=== PATIENT | male | born 1955 | race Native Hawaiian/Other Pacific Islander ===

== ENCOUNTER → 2016-09-01 | Outpatient (CLI) | payer BC | LOC: COL.PUL 07:31 | DX: J44.9 Chronic obstructive pulmonary disease, unspecified (principal); Z87.891 Personal history of nicotine dependence ==

== ENCOUNTER 2017-10-21 06:02 | Day surgery (SDC) | payer BC ==
[2017-10-21] VITALS (14 sets, daily range): BP systolic 140–170; BP diastolic 87–101; PULSE 50–69; TEMP 97.8
[~2017-10-21] VITALS: Ht 170.2 cm; Wt 136.7 kg
[2017-10-21] MEDS ORDERED: TOPROL XL100 MG PO (06:13)
[2017-10-21] MEDS ORDERED: LIPITOR 40MG TA40 MG PO (06:14)
[2017-10-21] MEDS ORDERED: IMDUR 60MG60 MG/TAB PO (06:14)
[2017-10-21] MEDS ORDERED: PLAVIX 75MG TAB75 MG PO (06:14)
[2017-10-21] MEDS ORDERED: COZAAR100 MG PO (06:15)
[2017-10-21] MEDS ORDERED: BRINTELLIX20 (06:15)
[2017-10-21] MEDS ORDERED: ANORO IH (06:16)
[2017-10-21 06:40] LABS: HEMATOCRIT 41.6 % (42.0-52.0); HEMOGLOBIN 14.6 g/dl (13.5-18.0); MEAN CELL VOLUME 92 fl (80.0-100.0); MEAN CORPUSCULAR HEMOGLOBIN 32 pg (27.0-31.0); MEAN CORPUSCULAR HGB CONC 35 g/dl (33.0-37.0); MEAN PLATELET VOLUME 10.4 fl (7.4-10.4); PLATELET COUNT 320 K/mm3 (130-400); RED BLOOD COUNT 4.53 M/mm3 (4.20-5.60); REDCELL DISTRIBUTION WIDTH-CV 13.8 % (11.5-14.5)
[2017-10-21 06:47] LABS: PROTHROMBIN TIME 11.4 SECONDS (9.7-12.8)
[2017-10-21 06:55] LABS: ARTERIAL BLD GAS TCO2 CT 27.2; ARTERIAL BLOOD GAS BASE EXCESS 1.4 (-2-2); ARTERIAL BLOOD GAS HCO3 25.9 meq/L (22-26); ARTERIAL BLOOD GAS PCO2 40.7 mmHg (35-45); ARTERIAL BLOOD GAS PO2 75.4 mmHg (80-100); ARTERIAL BLOOD GAS pH 7.42 (7.35-7.45)
[2017-10-21 07:11] LABS: CALCIUM 8.7 mg/dL (8.4-10.2); CREATININE, serum 0.89 mg/dL (0.66-1.25); POTASSIUM 4.5 mmol/L (3.4-5.0)
== END 2017-10-21 13:45 | disposition home or self-care (01) ==
LOC: COL.CAR 06:02
PROVIDERS: Internal Medicine Interventional Cardiology
DX: I25.119 Atherosclerotic heart disease of native coronary artery with unspecified angina pectoris (principal); R94.39 Abnormal result of other cardiovascular function study; I27.20 Pulmonary hypertension, unspecified; G47.33 Obstructive sleep apnea (adult) (pediatric); M54.2 Cervicalgia; I10 Essential (primary) hypertension; E78.5 Hyperlipidemia, unspecified; Z88.6 Allergy status to analgesic agent
CPT/HCPCS: J1644; J2250; J3010; Q9967

== ENCOUNTER 2017-11-02 19:18 | Emergency (ER) | payer BC ==
[~2017-11-02] VITALS: Ht 170.2 cm; Wt 131.8 kg
[~2017-11-02 19:18] MED LIST: ANORO IH; BRINTELLIX20; COZAAR100 MG PO; IMDUR 60MG60 MG/TAB PO; LIPITOR 40MG TA40 MG PO; PLAVIX 75MG TAB75 MG PO; TOPROL XL100 MG PO
[2017-11-02 19:24] VITALS: TEMP 98
[2017-11-02 20:02] LABS: BASO # 0.1 (0.0-0.2); BASO % 0.9 % (0.0-2.0); EOS # 0.3 (0.0-0.7); GRAN # 3.5 (1.4-6.5); GRAN % 49.9 % (42.2-75.2); HEMATOCRIT 46.1 % (42.0-52.0); HEMOGLOBIN 15.7 g/dl (13.5-18.0); LYMPH # 2.4 (1.2-3.4); LYMPH % 33.7 % (20.0-51.0); MEAN CELL VOLUME 94 fl (80.0-100.0); MEAN CORPUSCULAR HEMOGLOBIN 32 pg (27.0-31.0); MEAN CORPUSCULAR HGB CONC 34 g/dl (33.0-37.0); MONO # 0.8 (0.1-0.6); MONO % 11.4 % (1.7-9.3); PLATELET COUNT 269 K/mm3 (130-400); RED BLOOD COUNT 4.91 M/mm3 (4.20-5.60); REDCELL DISTRIBUTION WIDTH-CV 13.3 % (11.5-14.5)
[2017-11-02 20:12] LABS: ALANINE AMINOTRANSFERASE 44 U/L (21-72); ALBUMIN 4.3 gm/dL (3.5-5.0); ALKALINE PHOSPHATASE 86 U/L (50-136); ANION GAP 12 mmol/L (7-16); AST,SGOT 46 U/L (15-37); BILIRUBIN,TOTAL 0.5 mg/dL (0.0-1.0); BLOOD UREA NITROGEN 33 mg/dL (9-20); CALCIUM 9.4 mg/dL (8.4-10.2); CARBON DIOXIDE 22 mmol/L (22-30); CHLORIDE 106 mmol/L (98-107); CREATININE, serum 1.27 mg/dL (0.66-1.25); GLUCOSE 93 mg/dL (74-106); POTASSIUM 4.2 mmol/L (3.4-5.0); SODIUM 140 mmol/L (137-145); TOTAL PROTEIN 8.1 gm/dL (6.4-8.2)
[2017-11-02] MEDS ORDERED: RANEXA 500MG T500 MG PO (20:24)
[2017-11-02 20:26] LABS: TROPONIN-I < 0.012 ng/mL (0.000-0.034)
[2017-11-02] MEDS ORDERED: ANTIVERT 25MG25 MG PO (20:49)
[2017-11-02] MEDS ORDERED: ZOFRAN 4MG T4 MG/TAB PO (20:49)
[2017-11-02 21:05] VITALS: BP 127/94; PULSE 89
== END 2017-11-02 21:05 | disposition home or self-care (01) ==
LOC: COL.ER 19:18
PROVIDERS: Emergency Medicine
DX: R07.89 Other chest pain (principal); R42 Dizziness and giddiness; R11.0 Nausea; I10 Essential (primary) hypertension; J44.9 Chronic obstructive pulmonary disease, unspecified; I50.9 Heart failure, unspecified; E66.9 Obesity, unspecified; Z87.891 Personal history of nicotine dependence; Z98.890 Other specified postprocedural states; Z79.02 Long term (current) use of antithrombotics/antiplatelets
CPT/HCPCS: J2405

== ENCOUNTER 2018-08-01 08:45 | Outpatient (RCR) | payer OTHER ==
[~2018-08-01 08:45] MED LIST changes: +ANTIVERT 25MG25 MG PO; +RANEXA 500MG T500 MG PO; +ZOFRAN 4MG T4 MG/TAB PO
== END 2018-08-09 16:20 | disposition home or self-care (01) ==
LOC: WSPT 08:45
DX: M54.5 Low back pain (principal); M25.562 Pain in left knee; M25.561 Pain in right knee

== ENCOUNTER → 2018-09-12 | Outpatient (CLI) | payer OTHER | LOC: COL.PUL 07:35 | DX: Z02.71 Encounter for disability determination (principal) ==

== ENCOUNTER 2018-11-25 22:43 | Inpatient (IN) | payer OTHER ==
[~2018-11-25] VITALS: Ht 170.2 cm; Wt 130.3 kg
[2018-11-25 23:16] LABS: BASO % 0.4 % (0.0-2.0); EOS # 0.2 (0.0-0.7); EOS % 2.8 % (0-4.0); GRAN # 4.4 (1.4-6.5); HEMATOCRIT 43.2 % (42.0-52.0); HEMOGLOBIN 14.9 g/dl (13.5-18.0); LYMPH # 1.6 (1.2-3.4); LYMPH % 23.1 % (20.0-51.0); MEAN CELL VOLUME 94 fl (80.0-100.0); MEAN CORPUSCULAR HEMOGLOBIN 33 pg (27.0-31.0); MEAN CORPUSCULAR HGB CONC 35 g/dl (33.0-37.0); MONO # 0.6 (0.1-0.6); MONO % 9.4 % (1.7-9.3); PLATELET COUNT 220 K/mm3 (130-400); RED BLOOD COUNT 4.59 M/mm3 (4.20-5.60); REDCELL DISTRIBUTION WIDTH-CV 13.3 % (11.5-14.5)
[2018-11-25 23:24] LABS: ALBUMIN 4.1 gm/dL (3.5-5.0); BILIRUBIN,TOTAL 0.5 mg/dL (0.0-1.0); CALCIUM 9.3 mg/dL (8.4-10.2); CREATININE, serum 1.47 (0.66-1.25); POTASSIUM 4.3 mmol/L (3.4-5.0); TOTAL PROTEIN 7.6 gm/dL (6.4-8.2)
[2018-11-26] VITALS (7 sets, daily range): BP systolic 90–122; BP diastolic 53–69; PULSE 72–87; TEMP 97.5–99.1
[2018-11-26] MEDS ORDERED: PROAIR HFA0.09 MG/AC IH (02:24)
--- NOTE | 2018-11-26 02:35 | NUR ---
PT ADMITTED TO 343 FROM E.D. WITH Dx OF PERFORATED DIVERTICULUM/ABDOMINAL PAIN. PT DID NOT NEED/REQUEST PAIN MEDICATION WHEN ARRIVING ON FLOOR. SEE 5 PAGE ADMISSION ASSESSMENT.
[2018-11-26 02:50] LABS: COLLECTION METHOD CLEAN CATCH
[2018-11-26 02:57] LABS: MUCOUS Present /lpf; PH 5 (5-8); SQUAMOUS EPITHELIAL None Seen /hpf; URINE APPEARANCE Cloudy; URINE BACTERIA Rare /hpf; URINE BILIRUBIN Negative (NEGATIVE); URINE BLOOD 3+ (NEGATIVE); URINE COLOR Yellow; URINE GLUCOSE Negative (NEGATIVE); URINE KETONE Negative (NEGATIVE); URINE LEUKOCYTE ESTERASE Negative (NEGATIVE); URINE NITRATE Negative (NEGATIVE); URINE PROTEIN(semi-quant) Negative (NEGATIVE); URINE RBC >50 /hpf; URINE UROBILINOGEN Negative (NEGATIVE)
--- NOTE | 2018-11-26 06:24 | NUR ---
PT HAS NOT REQUIRED ANYTHING MORE FOR PAIN. HE DID c/o DYSPNEA. PT SAT UP ON EDGE OF BED AND FELT BETTER.
[2018-11-26 12:50] LABS: TROPONIN-I < 0.012 ng/mL (0.000-0.035)
--- NOTE | 2018-11-26 18:00 | NUR ---
Alert. Medicated with Dilaudid for c/o lower left abdominal pain with relief. Dr. Dill and hospitalist saw patient. IV antibiotics given. Used BIOLOGICAL SCIENCES PROFESSOR Dilaudid sparingly. Slept in recliner chair with O2 on. Took ice chips without nausea. IV fluids infusing. Family in room.
[2018-11-27] VITALS (10 sets, daily range): BP systolic 108–127; BP diastolic 42–83; PULSE 71–87; TEMP 97.5–99.4
[2018-11-27 06:28] LABS: BASO % 0.1 % (0.0-2.0); GRAN % 88.7 % (42.2-75.2); HEMATOCRIT 38.2 % (42.0-52.0); LYMPH # 0.8 (1.2-3.4); LYMPH % 5.4 % (20.0-51.0); MEAN CELL VOLUME 97 fl (80.0-100.0); MEAN CORPUSCULAR HEMOGLOBIN 33 pg (27.0-31.0); MEAN CORPUSCULAR HGB CONC 34 g/dl (33.0-37.0); MEAN PLATELET VOLUME 9.4 fl (7.4-10.4); MONO # 0.8 (0.1-0.6); MONO % 5.2 % (1.7-9.3); PLATELET COUNT 186 K/mm3 (130-400); RED BLOOD COUNT 3.93 M/mm3 (4.20-5.60); REDCELL DISTRIBUTION WIDTH-CV 14.3 % (11.5-14.5)
[2018-11-27 06:32] LABS: HEMOGLOBIN 12.8 g/dl (13.5-18.0)
[2018-11-27 06:43] LABS: CALCIUM 8.7 mg/dL (8.4-10.2); CREATININE, serum 1.17 (0.66-1.25); POTASSIUM 3.7 mmol/L (3.4-5.0)
--- NOTE | 2018-11-27 08:30 | NUR ---
Patient sitting up in recliner. Alert and oriented x 3. Shift assessment complete. PRESETTER OPERATOR infusing per orders, educated patient on ETCO2 monitor and leaving monitor in place. Denies further needs at this time. Will continue to monitor.
--- NOTE | 2018-11-27 14:56 | NUR ---
Initial visit attempt; Patient resting, Medical Front Desk Specialist spoke with family who appeared glad Medical Front Desk Specialist let them know of the availability of spiritual care at [facility].
--- NOTE | 2018-11-27 17:58 | NUR ---
Patient has done well throughout the day. CRAP SHOOTER continues to infuse per orders. Denies further needs at this time. Will report off to shift mgr.
[2018-11-28] VITALS (11 sets, daily range): BP systolic 122–154; BP diastolic 44–82; PULSE 72–91; TEMP 97.8–98.8
--- NOTE | 2018-11-28 06:08 | NUR ---
Patient rested well throughout the night. States pain is much better controlled than yesterday with the continuous dose from VAULT CUSTODIAN. States pain is at a 5 when he is resting and around an 7 when he is up moving around. Patient states he is happy and his pain is controlled at this time. Patient ambulates independently to the restroom. States he is having loose stools. Will report off to day shift nurse.
[2018-11-28] MEDS ORDERED: 00186-0370-20 IH (08:08)
--- NOTE | 2018-11-28 08:54 | NUR ---
SAMAN met with the patient to discuss a discharge plan. The patient lives in [place] with his Katiuska. The patient has a cane and a CPAP and receives his supplies from the [facility] and patient receives medications from the [facility] via mail and [facility] with no difficulites. The patient does not have advanced directives in the EMR but was interested in a DPOA-HC form. SAMAN provided the form. The patient plans to return home upon discharge with Katiuska providing transportation. There are no additional needs at this time.
[2018-11-28 09:15] LABS: BASO % 0.1 % (0.0-2.0); EOS # 0.1 (0.0-0.7); EOS % 0.5 % (0-4.0); GRAN # 11.7 (1.4-6.5); GRAN % 86.5 % (42.2-75.2); HEMATOCRIT 38.5 % (42.0-52.0); HEMOGLOBIN 12.7 g/dl (13.5-18.0); LYMPH # 0.8 (1.2-3.4); LYMPH % 6.2 % (20.0-51.0); MEAN CELL VOLUME 97 fl (80.0-100.0); MEAN CORPUSCULAR HEMOGLOBIN 32 pg (27.0-31.0); MEAN CORPUSCULAR HGB CONC 33 g/dl (33.0-37.0); MEAN PLATELET VOLUME 9.1 fl (7.4-10.4); MONO # 0.8 (0.1-0.6); PLATELET COUNT 201 K/mm3 (130-400); RED BLOOD COUNT 3.99 M/mm3 (4.20-5.60)
[2018-11-28 09:27] LABS: CALCIUM 8.6 mg/dL (8.4-10.2); CREATININE, serum 0.87 (0.66-1.25); POTASSIUM 3.7 mmol/L (3.4-5.0)
--- NOTE | 2018-11-28 09:41 | NUR ---
Patient in bed resting. Alert and oriented x3. Shift assessment complete. Patient states pain is better controlled with new medication regimen. COGNOS BI ADMINISTRATOR and fluids infusing to right AC per orders. Denies further needs at this time.
--- NOTE | 2018-11-28 18:17 | NUR ---
Patient has done well throughout the day. States pain is well controlled with current medication regimen. Denies further needs at this time. Will report off to manufacturing supervisor 2nd shift.
--- NOTE | 2018-11-28 20:00 | NUR ---
Report received. Assumed care for cnc machinist 2nd shift. Assessment complete. VS stable. States dilaudid MACHINE COIL ASSEMBLER controlling pain adequately. Tolerating clear liquids-denies nausea. Passing gas-states had a loose BM earlier today. Plan of care discussed for this shift to include pain control, HS meds and diet. Denies questions or concerns. Call light in reach/bed in low position/wheels locked will monitor.
[2018-11-29] VITALS (10 sets, daily range): BP systolic 118–141; BP diastolic 63–97; PULSE 71–93; TEMP 97.8–98.7
--- NOTE | 2018-11-29 04:00 | NUR ---
Rested well this shift. Pain controlled with dilaudid ARC CUTTER PLASMA ARC. Denies nausea/shortness of breath. IV to Right AC infusing without difficulty. Has tolerated clear liquids. Denies needs. Call light in reach. Bed in low position wheels locked. Will monitor.
[2018-11-29 07:15] LABS: BASO % 0.3 % (0.0-2.0); EOS # 0.4 (0.0-0.7); EOS % 3.1 % (0-4.0); GRAN # 9.1 (1.4-6.5); HEMATOCRIT 39.5 % (42.0-52.0); HEMOGLOBIN 12.9 g/dl (13.5-18.0); LYMPH # 1.1 (1.2-3.4); LYMPH % 9.6 % (20.0-51.0); MEAN CELL VOLUME 97 fl (80.0-100.0); MEAN CORPUSCULAR HEMOGLOBIN 32 pg (27.0-31.0); MEAN CORPUSCULAR HGB CONC 33 g/dl (33.0-37.0); MEAN PLATELET VOLUME 9.2 fl (7.4-10.4); MONO # 1.2 (0.1-0.6); MONO % 10.2 % (1.7-9.3); PLATELET COUNT 211 K/mm3 (130-400); RED BLOOD COUNT 4.08 M/mm3 (4.20-5.60); REDCELL DISTRIBUTION WIDTH-CV 13.6 % (11.5-14.5)
[2018-11-29 07:25] LABS: CALCIUM 8.3 mg/dL (8.4-10.2); CREATININE, serum 0.88 (0.66-1.25); POTASSIUM 3.4 mmol/L (3.4-5.0)
--- NOTE | 2018-11-29 08:00 | NUR ---
UPON ENTRY TO THE ROOM THE PATIENT IS SITTING UP IN THE CHAIR WITH HIS AT THE BEDSIDE. PATIENT IS A&OX4. VSS. TELE IN PLACE. BOWEL SOUNDS ACTIVE ALL FOUR QUADRANTS. PATIENT TOLERATING CLEAR LIQUIDS WITHOUT ANY COMPLAINTS OF N/V. PATIENT PASSING FLATUS. POSITIVE PEDAL PULSES EQUAL BILATERALLY. NON-PITTING EDEMA TO BLE. IV FLUIDS AND JOURNEYMAN MECHANIC INFUSING TO RIGHT AC IV VIA PUMP. CALL LIGHT AND JOURNEYMAN MECHANIC BUTTON WITHIN REACH. PATIENT DENIES ANY OTHER NEEDS AT THIS TIME.
--- NOTE | 2018-11-29 09:25 | NUR ---
clay processing factory worker attended clinical rounds and then met with patient and spouse regarding discharge planning. Patient states he is feeling better and has been independent with transfers and ambulation. Patient states his primary care provider [facility] at [facility] and that he receives his medications through the [facility] and [facility]. Patient and spouse deny unmet needs upon discharge.
--- NOTE | 2018-11-29 10:15 | NUR ---
PATIENTS AUTOMATION TEST ENGINEER BASAL RATE STOPPED PER DR. YAO'S ORDERS.
--- NOTE | 2018-11-29 19:12 | NUR ---
REPORT GIVEN TO DELBERT POOL.
--- NOTE | 2018-11-29 20:00 | NUR ---
Report received. Assumed care for night filler. Assessment complete. VS stable. States CHANGE MANAGEMENT FACILITATOR is controlling pain-rating pain 2/10 to abdomen-intermittent. Denies nausea and shortness of breath. Tolerating diet. Voiding without difficulty/passing gas. Refusing HS meds stating he received them on day shift. States his times are "off" and he is confused on why he is getting medications twice a day. We did discuss previous HS medications as well as days shift medications-HS meds not given on day shift-but still refusing to take anything tonight. Denies any needs at this time. Call light in reach. Bed in low postion. Wheels locked. WIll monitor.
[2018-11-30] VITALS (8 sets, daily range): BP systolic 124–149; BP diastolic 75–89; PULSE 73–79; TEMP 97.4–99.3
[2018-11-30 06:39] LABS: BASO % 0.3 % (0.0-2.0); EOS # 0.5 (0.0-0.7); EOS % 4.5 % (0-4.0); GRAN # 7.6 (1.4-6.5); GRAN % 75.3 % (42.2-75.2); HEMATOCRIT 38.9 % (42.0-52.0); HEMOGLOBIN 13.2 g/dl (13.5-18.0); LYMPH # 0.9 (1.2-3.4); LYMPH % 8.5 % (20.0-51.0); MEAN CELL VOLUME 94 fl (80.0-100.0); MEAN CORPUSCULAR HEMOGLOBIN 32 pg (27.0-31.0); MEAN CORPUSCULAR HGB CONC 34 g/dl (33.0-37.0); MEAN PLATELET VOLUME 9.2 fl (7.4-10.4); MONO # 1.1 (0.1-0.6); MONO % 10.9 % (1.7-9.3); PLATELET COUNT 214 K/mm3 (130-400); RED BLOOD COUNT 4.14 M/mm3 (4.20-5.60); REDCELL DISTRIBUTION WIDTH-CV 13.1 % (11.5-14.5)
[2018-11-30 06:54] LABS: CALCIUM 8.5 mg/dL (8.4-10.2); CREATININE, serum 0.7 (0.66-1.25); POTASSIUM 3.3 mmol/L (3.4-5.0)
--- NOTE | 2018-11-30 07:46 | NUR ---
PT SITTING IN RECLINER AWAKE. PT COMPLAINS OF PAIN 08/14. CALL LIGHT AND PHONE WITHIN REACH.
--- NOTE | 2018-11-30 08:00 | NUR ---
Patient sitting up in recliner. Alert and oriented x3. Shift assessment complete. WELDER APPRENTICE GAS and antibiotic infusing per orders to right AC. States pain is tolerable at the moment. Tolerating increase in diet without difficulty. Denies further needs at this time.
--- NOTE | 2018-11-30 13:15 | NUR ---
Patient in chair resting at this time. Patient complains of pain continues to use TETRYL WRINGER OPERATOR. Patient has no other complaints at this time. Call light within reach. Report given to primary RN Gladis
--- NOTE | 2018-11-30 14:20 | NUR ---
Reported on to DELBERT Griffith.
--- NOTE | 2018-11-30 15:20 | NUR ---
Assessment completed. Antibiotic and NS infusing per orders into R AC. Pt. reported 8/10 pain. Educated on use of SUPERINTENDENT OF GENERATION and IS. Pt. reported increased diarrhea and pinching on bilateral sides of calves. Reported to primary nurse. at bedside. Pt. resting in recliner with call light within reach. No complains at this time.
--- NOTE | 2018-11-30 18:15 | NUR ---
Reported of to DELBERT Griffith.
--- NOTE | 2018-11-30 19:17 | NUR ---
Patient has done well throughout the day. CONTINUITY DIRECTOR discontinued this afternoon. Educated on oral pain medications and antibiotics. Tolerating full liquid diet. Denies further needs at this time. Reported off to night manager.
[2018-12-01 04:00] VITALS: BP 157/95; PULSE 84; TEMP 98.1
--- NOTE | 2018-12-01 05:41 | NUR ---
Patient given 1 tab norco for pain. Noted to be effective d/t patient sleeping. Patient slept well throughout the night with no complaints of pain. At about 0400, patient called for more pain medication. Stated it was 12/14. One tab given. Noted to be effective as patient is sleeping again. Will continue to monitor.
[2018-12-01 06:19] LABS: BASO % 0.4 % (0.0-2.0); EOS # 0.6 (0.0-0.7); EOS % 5.7 % (0-4.0); GRAN # 7.8 (1.4-6.5); GRAN % 72.8 % (42.2-75.2); HEMATOCRIT 39.8 % (42.0-52.0); HEMOGLOBIN 13.7 g/dl (13.5-18.0); LYMPH # 1.1 (1.2-3.4); MEAN CELL VOLUME 93 fl (80.0-100.0); MEAN CORPUSCULAR HEMOGLOBIN 32 pg (27.0-31.0); MEAN CORPUSCULAR HGB CONC 34 g/dl (33.0-37.0); MEAN PLATELET VOLUME 9.1 fl (7.4-10.4); MONO # 1.1 (0.1-0.6); MONO % 10.3 % (1.7-9.3); PLATELET COUNT 246 K/mm3 (130-400); RED BLOOD COUNT 4.29 M/mm3 (4.20-5.60); REDCELL DISTRIBUTION WIDTH-CV 13.2 % (11.5-14.5)
[2018-12-01 06:33] LABS: CALCIUM 8.5 mg/dL (8.4-10.2); CREATININE, serum 0.76 (0.66-1.25); POTASSIUM 3.1 mmol/L (3.4-5.0)
[2018-12-01 06:49] LABS: MAGNESIUM 1.8 mg/dL (1.6-2.3)
[2018-12-01 08:00] VITALS: BP 144/92; PULSE 94; TEMP 97.6
--- NOTE | 2018-12-01 08:00 | NUR ---
Patient sitting up in recliner. Alert and oriented x 3. Spouse at bedside. States cramping pain to abdomen 08/14. Educated patient on pain medications. Denies further needs at this time.
--- NOTE | 2018-12-01 08:03 | NUR ---
report recieved from primary RN. Patient is sitting in recliner eyes closed. Woke up easily. VS Stable. Complains of pain 6/10. Patient states that pain was better through the night. States no other needs at this time. Nonslip socks on. Will continue to monitor.
[2018-12-01 12:00] VITALS: BP 123/69; PULSE 87; TEMP 97.6
--- NOTE | 2018-12-01 13:34 | NUR ---
Patient sitting in recliner with eyes closed taking a nap. patient states pain has been better today. patient has non slip socks on. no other complaints at this time. call light within reach. patient up ad katya. report given to primary RN Gladis
[2018-12-01 17:44] VITALS: BP 126/75; PULSE 82; TEMP 98.4
[2018-12-01] MEDS ORDERED: AMOXICILLIN 8751 TAB PO (17:47)
[2018-12-01] MEDS ORDERED: FLAGYL500 MG PO (17:47)
[2018-12-01] MEDS ORDERED: NORCO 325 MG-7.1 TAB PO (17:49)
--- NOTE | 2018-12-01 18:38 | NUR ---
Patient has done well throughout the day. Has requested pain medication for abdominal cramping. Medications given per orders. Independent in room. Denies further needs at this time. Will report off to overnight stocker.
[2018-12-01 19:13] VITALS: BP 121/73; PULSE 82; TEMP 99.2
[2018-12-02] VITALS: BP 138/79; PULSE 88; TEMP 98.8
--- NOTE | 2018-12-02 01:45 | NUR ---
PATIENT HAS DONE WELL THROUGHOUT NIGHT. HAS TAKEN PO PAIN MEDICATION SEVERAL TIMES AND WAS GIVEN ZOFRAN FOR NAUSEA. HAD SOME ABDOMINAL CRAMPING PAIN BUT IS CONTROLLED WITH PAIN MEDICATION. PATIENT INDEPENDENT IN ROOM. NO FURTHER NEEDS AT THIS TIME.
[2018-12-02 04:00] VITALS: BP 143/99; PULSE 73; TEMP 97.9
[2018-12-02 07:03] LABS: HEMATOCRIT 40.6 % (42.0-52.0); HEMOGLOBIN 13.8 g/dl (13.5-18.0); MEAN CELL VOLUME 93 fl (80.0-100.0); MEAN CORPUSCULAR HEMOGLOBIN 32 pg (27.0-31.0); MEAN CORPUSCULAR HGB CONC 34 g/dl (33.0-37.0); MEAN PLATELET VOLUME 8.9 fl (7.4-10.4); PLATELET COUNT 260 K/mm3 (130-400); RED BLOOD COUNT 4.37 M/mm3 (4.20-5.60); REDCELL DISTRIBUTION WIDTH-CV 13.2 % (11.5-14.5)
[2018-12-02 07:22] LABS: CALCIUM 8.7 mg/dL (8.4-10.2); CREATININE, serum 0.74 (0.66-1.25); POTASSIUM 3.4 mmol/L (3.4-5.0)
[2018-12-02 08:00] VITALS: BP 135/85; PULSE 78; TEMP 98.7
[2018-12-02 09:14] LABS: BAND 5 % (0-10); EOSINOPHIL 7 % (0-4); LYMPHOCYTE 10 % (20.0-51.0); NEUTROPHILS 70 % (42.0-75.2)
[2018-12-02 09:15] LABS: PLATELET ESTIMATE NORMAL (NORMAL)
[2018-12-02] MEDS ORDERED: NORCO 325 MG-51 TAB PO (10:38)
--- NOTE | 2018-12-02 12:30 | NUR ---
Discharge education provided to patient and spouse. Educated on maintaining low fiber diet and diverticulitis. Educated on pain medication and medication safety. All questions answered. Denies further needs at this time. Patient out by wheelchair with spouse and surgical staff.
[2018-12-02] MEDS ORDERED: NORCO 325 MG-7.1 TAB PO (14:14)
== END 2018-12-02 12:58 | disposition home or self-care (01) | DRG 391 ==
LOC: COL.ER 22:43 → SURG 11-26 00:39 → EDBEDREQ 11-26 01:21 → SURG 11-26 19:00
PROVIDERS: Emergency Medicine; Physician Assistant; ADMIT Surgery
DX: K57.80 Diverticulitis of intestine, part unspecified, with perforation and abscess without bleeding (principal); J96.01 Acute respiratory failure with hypoxia; I50.22 Chronic systolic (congestive) heart failure; N17.9 Acute kidney failure, unspecified; I25.10 Atherosclerotic heart disease of native coronary artery without angina pectoris; E78.5 Hyperlipidemia, unspecified; G47.33 Obstructive sleep apnea (adult) (pediatric); F43.10 Post-traumatic stress disorder, unspecified; J44.9 Chronic obstructive pulmonary disease, unspecified; I11.0 Hypertensive heart disease with heart failure; N20.0 Calculus of kidney; I72.9 Aneurysm of unspecified site; K66.8 Other specified disorders of peritoneum; R53.81 Other malaise; D72.829 Elevated white blood cell count, unspecified; I95.2 Hypotension due to drugs; T46.5X5A Adverse effect of other antihypertensive drugs, initial encounter; Z99.89 Dependence on other enabling machines and devices
CPT/HCPCS: 99231-AI; 99232-AI; J0692; J1170; J1644; J2405; J2543; J7030

== ENCOUNTER 2018-12-07 11:40 | Inpatient (IN) | payer OTHER ==
[~2018-12-07] VITALS: Ht 170.2 cm; Wt 128.6 kg
[~2018-12-07 11:40] MED LIST changes: +00186-0370-20 IH; +AMOXICILLIN 8751 TAB PO; +FLAGYL500 MG PO; +NORCO 325 MG-51 TAB PO; +NORCO 325 MG-7.1 TAB PO; +PROAIR HFA0.09 MG/AC IH
[2018-12-07] MEDS ORDERED: 00186-0370-20 IH (12:30)
[2018-12-07 12:31] LABS: ALBUMIN 3.6 gm/dL (3.5-5.0); BILIRUBIN,TOTAL 0.8 mg/dL (0.0-1.0); C-REACTIVE PROTEIN 4.7 mg/dL (0.0-0.9); CREATININE, serum 0.79 (0.66-1.25); POTASSIUM 4.2 mmol/L (3.4-5.0); TOTAL PROTEIN 7.8 gm/dL (6.4-8.2)
[2018-12-07] MEDS ORDERED: BRINTELLIX20 PO (12:33)
[2018-12-07 12:37] LABS: BASO # 0.1 (0.0-0.2); BASO % 0.4 % (0.0-2.0); EOS # 0.3 (0.0-0.7); EOS % 1.9 % (0-4.0); GRAN # 9.9 (1.4-6.5); GRAN % 74.6 % (42.2-75.2); HEMATOCRIT 38.9 % (42.0-52.0); HEMOGLOBIN 12.8 g/dl (13.5-18.0); LYMPH # 1.6 (1.2-3.4); LYMPH % 11.9 % (20.0-51.0); MEAN CELL VOLUME 96 fl (80.0-100.0); MEAN CORPUSCULAR HEMOGLOBIN 32 pg (27.0-31.0); MEAN CORPUSCULAR HGB CONC 33 g/dl (33.0-37.0); MEAN PLATELET VOLUME 8.8 fl (7.4-10.4); MONO # 1.3 (0.1-0.6); MONO % 9.8 % (1.7-9.3); PLATELET COUNT 380 K/mm3 (130-400); RED BLOOD COUNT 4.06 M/mm3 (4.20-5.60); REDCELL DISTRIBUTION WIDTH-CV 13.5 % (11.5-14.5)
[2018-12-07 16:40] VITALS: BP 112/92; PULSE 63; TEMP 97.8
--- NOTE | 2018-12-07 17:01 | NUR ---
REPORT FROM ED NURSE. PT TO ROOM 328, SETTLED TO ROOM, VSS, ASSESSMENTS COMPLETE. PT IS NPO AT THIS TIME.
[2018-12-07 20:17] VITALS: BP 137/70; PULSE 72; TEMP 98.3
--- NOTE | 2018-12-07 21:04 | NUR ---
Patient doing well, resting in bed with SCDs on. Patient has zosyn and flagyl running through IV, tolerating well. Patient heart and lung sounds normal. Patient denies pain at this time. Patient to have CT done tomorrow. Patient denies any other needs or concerns at this time. Call light within reach, will continue to monitor
[2018-12-08] VITALS (12 sets, daily range): BP systolic 99–130; BP diastolic 55–76; PULSE 61–105; TEMP 97.3–98.4
--- NOTE | 2018-12-08 09:00 | NUR ---
Patient alert and oriented, answers questions appropriately. See assessment. Abdomen obese, non tender. Bowel sounds active. +Flatus. No c/o at this time.
--- NOTE | 2018-12-08 09:43 | NUR ---
Initial visit; Patient thanked Legal Transcriptionist for looking in on him and wishing him God's blessings. His Brim Presser was with him upon arrival.
--- NOTE | 2018-12-08 10:50 | NUR ---
PT BROUGHT DOWN TO CT IN WHEELCHAIR AND TRANSFERS TO CT TABLE PER SELF. MONITORING EQUIPMENT PLACED ON PT AND IMAGING DONE.
--- NOTE | 2018-12-08 14:26 | NUR ---
SAMAN met with the patient and the patient's , Katiuska (ph#[phone]), to discuss discharge plan. The patient lives in [place] with his , daughter, son-in-law, and grandson. He reports independence with ADLs and has a cane and CPAP from the [facility]. The patient's PCP is Asad Mccormack at the [facility] in [place] and he receives his medications from the [facility] mail order and the [facility] in [facility]. He reports no difficulties obtaining his meds. The patient does not have advanced directives completed, but he states that he has the forms to fill out at home. The patient plans to return home with his family upon discharge. No additional needs at this time.
--- NOTE | 2018-12-08 21:00 | NUR ---
Pt. sitting up in chair at this time. Pt. is A&OX3, assessment complete. Wound drain to LLQ noted, no drainage noted in bag at this time. Pt. reported pain at a 7 on pain scale, will give pain meds per orders. Pt. denies further needs, call light within reach.
[2018-12-09] VITALS (7 sets, daily range): BP systolic 93–135; BP diastolic 45–73; PULSE 56–75; TEMP 97.4–98.6
[2018-12-09 06:27] LABS: BASO # 0.1 (0.0-0.2); EOS # 0.1 (0.0-0.7); EOS % 1.9 % (0-4.0); GRAN # 3.8 (1.4-6.5); GRAN % 61.1 % (42.2-75.2); HEMATOCRIT 38.2 % (42.0-52.0); HEMOGLOBIN 12.5 g/dl (13.5-18.0); LYMPH # 1.3 (1.2-3.4); LYMPH % 20.7 % (20.0-51.0); MEAN CELL VOLUME 96 fl (80.0-100.0); MEAN CORPUSCULAR HEMOGLOBIN 31 pg (27.0-31.0); MEAN CORPUSCULAR HGB CONC 33 g/dl (33.0-37.0); MEAN PLATELET VOLUME 8.6 fl (7.4-10.4); MONO # 0.9 (0.1-0.6); MONO % 14.8 % (1.7-9.3); PLATELET COUNT 414 K/mm3 (130-400); RED BLOOD COUNT 3.98 M/mm3 (4.20-5.60); REDCELL DISTRIBUTION WIDTH-CV 13.6 % (11.5-14.5)
--- NOTE | 2018-12-09 08:30 | NUR ---
Dr. Sevilla saw patient. Has been medicated with Augusta for c/o lower abdominal pain. Abscess drain to left abdomen with purulent drainage in tubing.
--- NOTE | 2018-12-09 17:30 | NUR ---
Medicated with Kimberly for c/o abdominal discomfort. Afebrile. IV antibiotics infusing. Up in room by self.
--- NOTE | 2018-12-09 21:00 | NUR ---
Pt. sitting up in bed at this time. Pt. is A&OX3. IV to lt. AC patent, IV abx. infusing at this time. Abscess drain to llq noted, minimal drainage noted at this time. Pt. reports pain at a 4 on pain scale. Gave pain meds per orders. Pt. denies further needs.
[2018-12-10] VITALS (7 sets, daily range): BP systolic 97–142; BP diastolic 41–76; PULSE 55–73; TEMP 97.6–98.3
--- NOTE | 2018-12-10 09:00 | NUR ---
Denies pain. Left abdomen abscess drain intact with thick purulent drainage in tubing. Afebrile. Sitting up in recliner chair. Encouraged to ambulate. IV antibiotic infusing.
--- NOTE | 2018-12-10 17:30 | NUR ---
Medicated with [place] with relief for c/o pain in lower abdomen. No measurable drainage from abscess drain.
--- NOTE | 2018-12-10 19:00 | NUR ---
REPORT RECEIVED FROM HARPER, CARE OF PT ASSUMED AT THIS TIME. BEDSIDE ROUNDS COMPLETED, PT DENIES ANY NEEDS. CALL LIGHT WITHIN REACH.
--- NOTE | 2018-12-10 20:00 | NUR ---
PT IS AWAKE, ALERT, OX4 AND APPROPRIATE. PT DENIES PAIN AT THIS TIME. DRAIN IS IN PLACE TO LLQ OF ABDOMEN WITH NO DRAINAGE NOTED IN BAG. ABDOMEN IS SOFT WITH BOWEL SOUNDS X4. PT DENIES ANY NAUSEA OR OTHER COMPLAINTS. EDEMA NOTED TO BILAT ANKLES AND FEET. PT IS AMBULATORY INDEPENDENTLY IN ROOM WITHOUT ISSUES. CALL LIGHT WITHIN REACH.
[2018-12-11] VITALS (13 sets, daily range): BP systolic 114–138; BP diastolic 63–82; PULSE 50–75; TEMP 97.4–98.4
--- NOTE | 2018-12-11 06:37 | NUR ---
PT HAS A GOOD NIGHT, IS AWAKE AND SITTING UP IN THE CHAIR THIS AM. PT REPORTS PAIN IS CONTROLLED WITH PO NORCO. PT DENIES ANY FURTHER NEEDS AT THIS TIME. CALL LIGHT WITHIN REACH.
--- NOTE | 2018-12-11 08:25 | NUR ---
PT UP IN RECLINER, PT INDEPENDENT IN ROOM. IV TO LFA ABX RUNNING ORDERED. PLAN ON CT TODAY TO EXAMINE DRAIN. DRAIN TO LEFT SIDE OF ABDOMEN EMPTY AND NO ACTIVE DRAINAGE NOTED THIS AM AND LAST NOC BY REPORT FROM OFF GOING NURSE.
--- NOTE | 2018-12-11 10:15 | NUR ---
PT BROUGHT DOWN FROM 3RD FLOOR BY STAFF IN WHEELCHAIR. PLACED ON TABLE AND MONITORING EQUIPMENT PLACED ON PT. IMAGES TAKEN AND SENT TO
--- NOTE | 2018-12-11 16:24 | NUR ---
PT RESTING IN CHAIR, NEW DRAIN PLACED WITH NO DRAINAGE NOT AT THIS TIME.
--- NOTE | 2018-12-11 18:50 | NUR ---
REPORT TO TIMUR MANDUJANO.
--- NOTE | 2018-12-11 22:09 | NUR ---
Patient doing OK. A/o with VSS. Resting in bed with abx running. CPAP machine on. Patient does have drain to left side of abdomen with minimal output. Patient dressing clean, dry, intact. Patient does c/o pain in abdomen, rates it about a 3. Does not want any pain meds at this time. Patient does not have any other concerns at this time. Call light within reach, will continue to monitor
[2018-12-12] VITALS: BP 127/79; PULSE 67; TEMP 98.1
[2018-12-12 04:00] VITALS: BP 130/84; PULSE 63; TEMP 97.9
--- NOTE | 2018-12-12 07:09 | NUR ---
Report from Val MANDUJANO. SUPERVISOR AGENCY APPOINTMENTS student working with patient this am.
[2018-12-12 07:25] VITALS: BP 115/75; PULSE 76; TEMP 98.6
--- NOTE | 2018-12-12 08:42 | NUR ---
PT UP IN RECLINER FOR BREAKFAST. PT INDEPENDENT IN ROOM. DRAIN WITH SEROSANGUINOUS DRAINAGE PRESENT.
[2018-12-12 16:50] VITALS: BP 127/73; PULSE 57; TEMP 98.3
--- NOTE | 2018-12-12 19:30 | NUR ---
Patient doing ok. Does have some pain, rates it about a 7. PRN norco given to patient. Flagyl running. Patient to be NPO after midnight for CT tomorrow. Patient has no other concerns at this time. Call light within reach, will continue to monitor
[2018-12-12 20:00] VITALS: BP 128/67; PULSE 54; TEMP 98.4
[2018-12-12 23:32] VITALS: BP 127/66; PULSE 58; TEMP 97.6
[2018-12-13 04:00] VITALS: BP 112/53; PULSE 53; TEMP 98.6
[2018-12-13 06:25] LABS: BASO # 0.1 (0.0-0.2); BASO % 1.4 % (0.0-2.0); EOS # 0.2 (0.0-0.7); EOS % 4.3 % (0-4.0); GRAN # 2.7 (1.4-6.5); GRAN % 53.2 % (42.2-75.2); HEMOGLOBIN 11.9 g/dl (13.5-18.0); LYMPH # 1.5 (1.2-3.4); LYMPH % 29.6 % (20.0-51.0); MEAN CELL VOLUME 97 fl (80.0-100.0); MEAN CORPUSCULAR HEMOGLOBIN 32 pg (27.0-31.0); MEAN CORPUSCULAR HGB CONC 33 g/dl (33.0-37.0); MEAN PLATELET VOLUME 8.2 fl (7.4-10.4); MONO # 0.6 (0.1-0.6); MONO % 11.1 % (1.7-9.3); PLATELET COUNT 411 K/mm3 (130-400); RED BLOOD COUNT 3.77 M/mm3 (4.20-5.60); REDCELL DISTRIBUTION WIDTH-CV 13.6 % (11.5-14.5)
[2018-12-13 06:26] LABS: HEMATOCRIT 36.4 % (42.0-52.0)
[2018-12-13 06:34] LABS: CALCIUM 8.8 mg/dL (8.4-10.2); CREATININE, serum 0.93 (0.66-1.25)
[2018-12-13 06:50] VITALS: BP 123/64; PULSE 64; TEMP 98.6
--- NOTE | 2018-12-13 09:43 | NUR ---
Ambulatory assessment complete, pt able to get out of bed and out of chair without difficulty. Pt also able to ambulate in man long distances without difficulty, and perform ADL's
--- NOTE | 2018-12-13 09:45 | NUR ---
SAMAN met with the patient and his to revisit the discharge plan. The patient plans to return home with his . There are no additional needs at this time.
[2018-12-13 10:45] VITALS: BP 113/63; PULSE 58; TEMP 98.6
--- NOTE | 2018-12-13 13:45 | NUR ---
Drain removed without complications or resistance, pt did experience sharp pain during removal but subsided immediately. Pain reassment at 1435 rated as 3/10
[2018-12-13 15:55] VITALS: BP 121/64; PULSE 62; TEMP 98.3
[2018-12-13 21:15] VITALS: BP 124/76; PULSE 63; TEMP 98.1
--- NOTE | 2018-12-13 21:54 | NUR ---
Patient doing well. A/o with VSS. Drain site CD&I. Patient has some c/o pain at this time but does not want any pain medications right now. Patient resting in bed with CPAP on. Pt has no other concerns at this time. Call light within reach, will continue to monitor
[2018-12-13 23:37] VITALS: BP 130/79; PULSE 59; TEMP 97.5
[2018-12-14 03:53] VITALS: BP 129/79; PULSE 59; TEMP 97.6
[2018-12-14 11:55] VITALS: BP 107/63; PULSE 60; TEMP 98.1
[2018-12-14] MEDS ORDERED: AMOXICILLIN 8751 TAB PO (15:03)
[2018-12-14] MEDS ORDERED: DIFLUCAN200 MG PO (15:03)
== END 2018-12-14 16:00 | disposition home or self-care (01) | DRG 392 ==
LOC: COL.ER 11:40 → JCC 14:51
PROVIDERS: Physician Assistant; ADMIT Surgery
PROC: 0W9H30Z Drainage of Retroperitoneum with Drainage Device, Percutaneous Approach (ICD-10-PCS; principal; 2018-12-08)
DX: K57.80 Diverticulitis of intestine, part unspecified, with perforation and abscess without bleeding (principal); E66.9 Obesity, unspecified; I25.10 Atherosclerotic heart disease of native coronary artery without angina pectoris; F43.10 Post-traumatic stress disorder, unspecified; J44.9 Chronic obstructive pulmonary disease, unspecified; I10 Essential (primary) hypertension; Z87.442 Personal history of urinary calculi; Z87.891 Personal history of nicotine dependence
CPT/HCPCS: J1450; J2250; J2270; J2405; J2543; J3010; J7030; Q9967

== ENCOUNTER → 2018-12-28 | Outpatient (CLI) | payer OTHER ==
[~2018-12-28] MED LIST changes: +BRINTELLIX20 PO; +DIFLUCAN200 MG PO
[2018-12-28 13:45] LABS: HEMATOCRIT 43.4 % (42.0-52.0); HEMOGLOBIN 14.7 g/dl (13.5-18.0); MEAN CELL VOLUME 94 fl (80.0-100.0); MEAN CORPUSCULAR HEMOGLOBIN 32 pg (27.0-31.0); MEAN CORPUSCULAR HGB CONC 34 g/dl (33.0-37.0); MEAN PLATELET VOLUME 8.5 fl (7.4-10.4); PLATELET COUNT 228 K/mm3 (130-400); RED BLOOD COUNT 4.64 M/mm3 (4.20-5.60); REDCELL DISTRIBUTION WIDTH-CV 13.6 % (11.5-14.5)
[2018-12-28 14:58] LABS: ALBUMIN 4.1 gm/dL (3.5-5.0); BILIRUBIN,TOTAL 0.7 mg/dL (0.0-1.0); CALCIUM 9.9 mg/dL (8.4-10.2); CREATININE, serum 1.02 (0.66-1.25); POTASSIUM 4.1 mmol/L (3.4-5.0); TOTAL PROTEIN 8.4 gm/dL (6.4-8.2)
== END ==
LOC: COL.RAD 13:18
PROVIDERS: Surgery
DX: K57.20 Diverticulitis of large intestine with perforation and abscess without bleeding (principal); K57.30 Diverticulosis of large intestine without perforation or abscess without bleeding; N20.0 Calculus of kidney; M51.36 Other intervertebral disc degeneration, lumbar region; M46.96 Unspecified inflammatory spondylopathy, lumbar region; J98.6 Disorders of diaphragm; J98.11 Atelectasis
CPT/HCPCS: Q9967

== ENCOUNTER 2019-01-23 13:43 | Emergency (ER) | payer OTHER ==
[~2019-01-23] VITALS: Ht 170.2 cm; Wt 122.7 kg
[2019-01-23] MEDS ORDERED: TOPROL XL200 MG PO (13:58)
[2019-01-23 14:20] LABS: HEMATOCRIT 42.1 % (42.0-52.0); HEMOGLOBIN 14.4 g/dl (13.5-18.0); MEAN CELL VOLUME 94 fl (80.0-100.0); MEAN CORPUSCULAR HEMOGLOBIN 32 pg (27.0-31.0); MEAN CORPUSCULAR HGB CONC 34 g/dl (33.0-37.0); MEAN PLATELET VOLUME 8.4 fl (7.4-10.4); PLATELET COUNT 219 K/mm3 (130-400); RED BLOOD COUNT 4.49 M/mm3 (4.20-5.60)
[2019-01-23 14:25] VITALS: TEMP 98.1
[2019-01-23 14:32] LABS: ALANINE AMINOTRANSFERASE 46 U/L (21-72); ALBUMIN 4.2 gm/dL (3.5-5.0); ALKALINE PHOSPHATASE 101 U/L (50-136); ANION GAP 10 mmol/L (7-16); AST,SGOT 39 U/L (15-37); BILIRUBIN,TOTAL 0.6 mg/dL (0.0-1.0); BLOOD UREA NITROGEN 35 mg/dL (9-20); C-REACTIVE PROTEIN 0.7 mg/dL (0.0-0.9); CALCIUM 9.7 mg/dL (8.4-10.2); CARBON DIOXIDE 26 mmol/L (22-30); CHLORIDE 104 mmol/L (98-107); CREATININE, serum 1.03 (0.66-1.25); GLUCOSE 112 mg/dL (74-106); LIPASE 181 U/L (23-300); POTASSIUM 3.8 mmol/L (3.4-5.0); SODIUM 140 mmol/L (137-145); TOTAL PROTEIN 8.3 gm/dL (6.4-8.2)
[2019-01-23 14:42] LABS: TROPONIN-I < 0.012 ng/mL (0.000-0.035)
[2019-01-23 14:50] LABS: NEUTROPHILS 82 % (42.0-75.2)
[2019-01-23 14:51] LABS: BAND 8 % (0-10); EOSINOPHIL 1 % (0-4); LYMPHOCYTE 7 % (20.0-51.0); PLATELET ESTIMATE NORMAL (NORMAL)
[2019-01-23] MEDS ORDERED: ZITHROMAX Z PA250 MG PO (15:57)
[2019-01-23] MEDS ORDERED: AMOXICILLIN 8751 TAB PO (15:57)
[2019-01-23 16:27] VITALS: BP 124/85; PULSE 96
== END 2019-01-23 16:12 | disposition home or self-care (01) ==
LOC: COL.ER 13:43
PROVIDERS: Emergency Medicine
DX: R06.02 Shortness of breath (principal); R07.89 Other chest pain; R05 Cough; I25.10 Atherosclerotic heart disease of native coronary artery without angina pectoris; R10.9 Unspecified abdominal pain; Z87.19 Personal history of other diseases of the digestive system
CPT/HCPCS: J0696; J7030; Q9967

== ENCOUNTER 2019-01-29 06:27 | Day surgery (SDC) | payer OTHER ==
[~2019-01-29] VITALS: Ht 170.2 cm; Wt 122.7 kg
[~2019-01-29 06:27] MED LIST changes: +TOPROL XL200 MG PO; +ZITHROMAX Z PA250 MG PO
[2019-01-29] MEDS ORDERED: PROSCAR 5MG5 MG PO (06:45)
[2019-01-29] MEDS ORDERED: BRINTELLIX20 PO (06:45)
[2019-01-29] MEDS ORDERED: COZAAR100 MG PO (06:46)
[2019-01-29] MEDS ORDERED: LIPITOR 80MG80 MG PO (06:47)
[2019-01-29] MEDS ORDERED: HYGROTON 2525 MG/TAB PO (06:47)
[2019-01-29] MEDS ORDERED: IMDUR 30MG30 MG/TAB PO (06:48)
[2019-01-29] MEDS ORDERED: PLAVIX 75MG TAB75 MG PO (06:49)
[2019-01-29 07:09] VITALS: BP 123/80; PULSE 57; TEMP 97.9
--- NOTE | 2019-01-29 08:00 | NUR ---
Dr Dill into see patient's spouse at this time to go over results.
[2019-01-29 08:05] VITALS: BP 105/73; PULSE 60; TEMP 97.8
--- NOTE | 2019-01-29 08:05 | NUR ---
Patient arrives back to [facility] alert, denies pain or nausea. Patient ambulates from cart to chair with standby assist and without any complications. Patient monitor applied, vitals stable. Patient's spouse at bedside.
--- NOTE | 2019-01-29 08:10 | NUR ---
Patient given coffee at this time. Denies wanting anything to eat, denies nausea or pain. Vitals stable.
[2019-01-29 08:20] VITALS: BP 104/76; PULSE 62
--- NOTE | 2019-01-29 08:30 | NUR ---
Office open at this time now, follow-up appointment scheduled. Patient reports he feels great and is ready to go home. Patient tolerated coffee without any nausea, denies pain.
[2019-01-29 08:35] VITALS: BP 99/64; PULSE 62
[2019-01-29 08:41] VITALS: BP 112/76; PULSE 55
--- NOTE | 2019-01-29 08:45 | NUR ---
Dismissal instructions gone over with patient and patient's spouse. Both verbalize understanding, all questions answered.
--- NOTE | 2019-01-29 08:55 | NUR ---
Patient dismissed to home with spouse. Patient and spouse leave thanking staff for services.
== END 2019-01-29 08:55 | disposition home or self-care (01) ==
LOC: SDCO 06:27
DX: K57.30 Diverticulosis of large intestine without perforation or abscess without bleeding (principal); J44.9 Chronic obstructive pulmonary disease, unspecified; F43.10 Post-traumatic stress disorder, unspecified; I10 Essential (primary) hypertension; I25.10 Atherosclerotic heart disease of native coronary artery without angina pectoris; Z79.02 Long term (current) use of antithrombotics/antiplatelets; Z88.6 Allergy status to analgesic agent; G47.33 Obstructive sleep apnea (adult) (pediatric); I25.2 Old myocardial infarction; Z80.1 Family history of malignant neoplasm of trachea, bronchus and lung; Z82.49 Family history of ischemic heart disease and other diseases of the circulatory system; Z83.3 Family history of diabetes mellitus
CPT/HCPCS: J2250; J3010; J7030

== ENCOUNTER 2019-02-08 15:20 | Inpatient (IN) | payer OTHER ==
[~2019-02-08] VITALS: Ht 170.2 cm; Wt 125.8 kg
[~2019-02-08 15:20] MED LIST changes: +HYGROTON 2525 MG/TAB PO; +IMDUR 30MG30 MG/TAB PO; +LIPITOR 80MG80 MG PO; +PROSCAR 5MG5 MG PO
[2019-02-14] MEDS ORDERED: COZAAR100 MG PO (19:08)
[2019-02-15] MEDS ORDERED: 00186-0370-20 IH (02:11)
[2019-03-14] VITALS (12 sets, daily range): BP systolic 101–130; BP diastolic 55–92; PULSE 75–106; TEMP 97.6–98.3
--- NOTE | 2019-03-14 13:08 | NUR ---
Patient to room 324 post op. Report from Susie pacu nurse. Patient is alert & oriented. Family at bedside. He reports cramping pain, we reviewed Eras protocol & tylenol & neurotin per orders. Denies nausea, water provided, denies wanting any other clear liquids at this time. Vss on O2. Scds ble. Abdomen soft, robotic lap site dressing Cdi. Ivf per orders. Will montior closely
--- NOTE | 2019-03-14 13:53 | NUR ---
Patient resting, continues to do well.
--- NOTE | 2019-03-14 18:55 | NUR ---
Patient up in the chair, took a short walk in the halls and did well. Held diuretic & cozaar. Metoprolol given. Vss. small amount of oozing noted from his low bandaid site. Melara to DD with marginal output. Ivf continue to infuse per orders. Report to night nurse
--- NOTE | 2019-03-14 20:32 | NUR ---
Sitting up in chair. Rates pain in abd less than a 5. Denies needs for pain med at this time. Five lap sites on abd with bandaids intact with scant discharge noted through bandaids. Low abd incision with dressing CDI. Melara to dependent drainage with clear yellow urine. Patient denies needs or concerns at this time.
--- NOTE | 2019-03-15 00:02 | NUR ---
Lying in bed with eyes closed and CPAP on. Opens eyes when enter room. Rates pain 4/10 in abd at this time. Takes scheduled acetaminophen. Will see if this helps alleviate pain and if not will call for additional pain medication. Patient denies further needs at this time. Reapplies CPAP.
[2019-03-15 04:00] VITALS: BP 108/79; PULSE 65; TEMP 97.8
--- NOTE | 2019-03-15 04:02 | NUR ---
Lying in bed with eyes closed and CPAP on. Opens eyes when name called out. Denies have any pain at this time. Denies any further needs currently.
--- NOTE | 2019-03-15 05:32 | NUR ---
Lying in bed with eyes closed and CPAP on. Opens eyes when enter room. Denies pain at this time. Explains that he would like to wake up some more in the bed and he will call for help when he is ready to get out of the bed. Transverse abd incision with dressing CDI. Five lap sites with bandaids intact with some drainage noted, none coming through bandage. Melara to dependent drainage draining clear yellow urine. IV continues to infuse LR at 75mL/hr. Patient denies further needs at this time.
--- NOTE | 2019-03-15 05:54 | NUR ---
Patient calls nurse to room for assistance. Explains that when he got out of bed he noticed that he had leaked stool from his rectum and it was on the bed and his gown. Moderate amount of watery brown stool noted on chux, sheet, and gown. Assisted the patient to the bathroom to clean up. New gown provided. Linens changed on bed. Patient was able to pass flatus and had more watery brown with a little bit of red stool while on the toilet. Sits up in chair. Denies further needs at this time.
--- NOTE | 2019-03-15 07:15 | NUR ---
awake sitting up in chair, bedside shift report received from DELBERT Austin, had clear liquid breakfast and tolerated well
[2019-03-15 07:22] LABS: BASO % 0.3 % (0.0-2.0); EOS % 0.1 % (0-4.0); GRAN # 4.8 (1.4-6.5); GRAN % 68.2 % (42.2-75.2); HEMATOCRIT 42.7 % (42.0-52.0); LYMPH # 1.2 (1.2-3.4); LYMPH % 17.4 % (20.0-51.0); MEAN CELL VOLUME 98 fl (80.0-100.0); MEAN CORPUSCULAR HEMOGLOBIN 32 pg (27.0-31.0); MEAN CORPUSCULAR HGB CONC 33 g/dl (33.0-37.0); MEAN PLATELET VOLUME 9.1 fl (7.4-10.4); MONO % 13.9 % (1.7-9.3); PLATELET COUNT 227 K/mm3 (130-400); RED BLOOD COUNT 4.35 M/mm3 (4.20-5.60); REDCELL DISTRIBUTION WIDTH-CV 13.6 % (11.5-14.5)
[2019-03-15 07:37] LABS: CALCIUM 8.9 mg/dL (8.4-10.2); CREATININE, serum 1.23 (0.66-1.25); MAGNESIUM 1.6 mg/dL (1.6-2.3); PHOSPHOROUS 3.3 mg/dL (2.5-4.5); POTASSIUM 4.1 mmol/L (3.4-5.0)
--- NOTE | 2019-03-15 08:00 | NUR ---
remains up in recliner, full assessment completed, see interventions for further info, patel catheter discontinued discontinued and tolerated well, up to bathroom independently for hygiene, denies needs
[2019-03-15 09:18] VITALS: BP 112/80; PULSE 68; TEMP 98.9
--- NOTE | 2019-03-15 09:30 | NUR ---
report given to DELBERT Sutherland
--- NOTE | 2019-03-15 10:02 | NUR ---
SAMAN met with the patient and his , Katiuska (ph#[phone]), to discuss discharge plan. The patient lives in [place] with his , daughter, son-in-law, and grandson. He reports independence with ADLs and [facility] The patient's primary care provider is Asad Mccormack APRN, at the [facility] and he receives his medications at the [facility] pharmacy in [facility]. He reports no difficulties obtaining his meds. The patient does not have advanced directives and he was not interested in completing them at this time. The patient plans to return home with his family upon discharge. No additional needs at this time.
--- NOTE | 2019-03-15 11:42 | NUR ---
First visit from the director of student aid. No needs right now.
[2019-03-15 12:17] VITALS: BP 110/65; PULSE 69; TEMP 98.7
[2019-03-15 17:34] VITALS: BP 74/38; BP 93/66; PULSE 65; TEMP 98
[2019-03-15 20:11] VITALS: BP 83/50; BP 83/55; PULSE 71; TEMP 98.3
--- NOTE | 2019-03-15 21:10 | NUR ---
Pt. sitting up in bed at this time. Pt. is A&OX3, assessment complete. INT to lt. hand patent. Abd. dressings CDI. Pt. denies pain or other needs.
[2019-03-15 23:49] VITALS: BP 93/57; PULSE 63; TEMP 97.2
[2019-03-16 04:00] VITALS: BP 93/58; PULSE 55; TEMP 97.9
--- NOTE | 2019-03-16 08:00 | NUR ---
PATIENT IS A&O. INDEPENDENT IN ROOM. VSS. PATIENT HAS HAD LOWER B/P'S. C/O ABD PAIN RATED AT 5/10. GAVE PRN ULTRAM FOR PAIN WITH AM MEDS. HEAD TO TOE ASSESSMENT WNL. ABDOMINAL LAP SITES CD&I. PATIENT EAT/DRINK/VOIDING SUFFICENT AMOUNTS. NO C/O N/V. LEFT HAND IV TO INT. NO OTHER NEEDS.
[2019-03-16 08:13] VITALS: BP 104/61; PULSE 74; TEMP 98.1
[2019-03-16 12:19] VITALS: BP 99/69; PULSE 58; TEMP 98.2
[2019-03-16 16:28] VITALS: BP 109/64; PULSE 69; TEMP 97.7
[2019-03-16] MEDS ORDERED: ULTRAM 50MG TAB50 MG PO (17:07)
--- NOTE | 2019-03-16 18:05 | NUR ---
PATIENT DISCHARGING HOME VIA WC TO PERSONAL VEHICLE WITH FAMILY. GAVE DISCHARGE INSTRUCTIONS, PRESCRIPTION AND PATIENT TO CALL FOR F/U APT. ANSWERED ALL QUESTIONS/CONCERNS. IV DC'D. PATIENT GIVEN PRN TRAMADOL BEFORE DISCHARGE.
== END 2019-03-16 18:05 | disposition home or self-care (01) | DRG 331 ==
LOC: INPTSU 03-14 05:36 → SURG 03-14 05:36 → INPTSU 03-14 06:04 → SURG 03-14 07:30
PROVIDERS: ADMIT Surgery
PROC: 0DTN4ZZ Resection of Sigmoid Colon, Percutaneous Endoscopic Approach (ICD-10-PCS; principal; 2019-03-16)
PROC: 8E0W4CZ Robotic Assisted Procedure of Trunk Region, Percutaneous Endoscopic Approach (ICD-10-PCS; 2019-03-16)
DX: K57.32 Diverticulitis of large intestine without perforation or abscess without bleeding (principal)
CPT/HCPCS: A4314; A9284; J0690; J1170; J1650; J2405; J2704; J3010; J7120

== ENCOUNTER 2019-02-14 13:29 | Observation (INO) | payer OTHER ==
[~2019-02-14] VITALS: Ht 170.2 cm; Wt 113.0 kg
[2019-02-14] VITALS (115 sets, daily range): BP systolic 129; BP diastolic 58–80; PULSE 75–87; TEMP 98.3–98.7; O2SAT 93–99
[2019-02-14 13:57] LABS: BASO % 0.3 % (0.0-2.0); EOS # 0.1 (0.0-0.7); EOS % 0.7 % (0-4.0); GRAN # 8.8 (1.4-6.5); GRAN % 86.6 % (42.2-75.2); HEMOGLOBIN 13.8 g/dl (13.5-18.0); LYMPH # 0.7 (1.2-3.4); LYMPH % 6.7 % (20.0-51.0); MEAN CELL VOLUME 96 fl (80.0-100.0); MEAN CORPUSCULAR HEMOGLOBIN 32 pg (27.0-31.0); MEAN CORPUSCULAR HGB CONC 34 g/dl (33.0-37.0); MEAN PLATELET VOLUME 8.5 fl (7.4-10.4); MONO # 0.6 (0.1-0.6); MONO % 5.4 % (1.7-9.3); PLATELET COUNT 183 K/mm3 (130-400); RED BLOOD COUNT 4.29 M/mm3 (4.20-5.60); REDCELL DISTRIBUTION WIDTH-CV 13.7 % (11.5-14.5)
[2019-02-14 14:08] LABS: ALANINE AMINOTRANSFERASE 44 U/L (21-72); ALBUMIN 4.1 gm/dL (3.5-5.0); ALKALINE PHOSPHATASE 106 U/L (50-136); ANION GAP 8 mmol/L (7-16); AST,SGOT 46 U/L (15-37); BILIRUBIN,TOTAL 0.6 mg/dL (0.0-1.0); BLOOD UREA NITROGEN 32 mg/dL (9-20); CALCIUM 9.6 mg/dL (8.4-10.2); CARBON DIOXIDE 24 mmol/L (22-30); CHLORIDE 105 mmol/L (98-107); CREATININE, serum 0.89 (0.66-1.25); GLUCOSE 101 mg/dL (74-106); LIPASE 187 U/L (23-300); POTASSIUM 3.7 mmol/L (3.4-5.0); SODIUM 137 mmol/L (137-145); TOTAL PROTEIN 7.8 gm/dL (6.4-8.2)
[2019-02-14 14:09] LABS: INR 0.9 (0.8-3.0); PROTHROMBIN TIME 10.8 SECONDS (9.7-12.8)
[2019-02-14 14:12] LABS: PARTIAL THROMBOPLASTIN TIME 29.9 SECONDS (26.0-37.0)
[2019-02-14 14:21] LABS: TROPONIN-I < 0.012 ng/mL (0.000-0.035)
[2019-02-14 14:31] LABS: C-REACTIVE PROTEIN 0.7 mg/dL (0.0-0.9)
[2019-02-14 15:09] LABS: COLLECTION METHOD CLEAN CATCH
[2019-02-14 15:14] LABS: MUCOUS Present /lpf; PH 5 (5-8); SQUAMOUS EPITHELIAL None Seen /hpf; URINE APPEARANCE Clear; URINE BACTERIA None Seen /hpf; URINE BILIRUBIN Negative (NEGATIVE); URINE BLOOD Negative (NEGATIVE); URINE COLOR Straw; URINE GLUCOSE Negative (NEGATIVE); URINE KETONE Negative (NEGATIVE); URINE LEUKOCYTE ESTERASE Negative (NEGATIVE); URINE NITRATE Negative (NEGATIVE); URINE PROTEIN(semi-quant) Negative (NEGATIVE); URINE RBC 0-2 /hpf; URINE UROBILINOGEN Negative (NEGATIVE)
[2019-02-14] MEDS ORDERED: COZAAR100 MG PO (19:08)
--- NOTE | 2019-02-14 19:18 | NUR ---
recieved report from ER nurse.
--- NOTE | 2019-02-14 19:45 | NUR ---
PT ARRIVED TO UNIT VIA STRETCHER WITH ER NURSE. PT STABLE. AT BEDSIDE WITH PT.
[2019-02-15] VITALS (371 sets, daily range): BP systolic 91–134; BP diastolic 57–85; PULSE 63–80; TEMP 98.3; O2SAT 84–99
[2019-02-15] MEDS ORDERED: 00186-0370-20 IH (02:11)
[2019-02-15 07:12] LABS: BASO % 0.4 % (0.0-2.0); EOS # 0.1 (0.0-0.7); EOS % 0.8 % (0-4.0); GRAN # 6.9 (1.4-6.5); GRAN % 81.7 % (42.2-75.2); HEMATOCRIT 38.5 % (42.0-52.0); HEMOGLOBIN 12.9 g/dl (13.5-18.0); LYMPH # 0.7 (1.2-3.4); LYMPH % 8.7 % (20.0-51.0); MEAN CELL VOLUME 95 fl (80.0-100.0); MEAN CORPUSCULAR HEMOGLOBIN 32 pg (27.0-31.0); MEAN CORPUSCULAR HGB CONC 34 g/dl (33.0-37.0); MEAN PLATELET VOLUME 8.6 fl (7.4-10.4); MONO # 0.7 (0.1-0.6); PLATELET COUNT 183 K/mm3 (130-400); RED BLOOD COUNT 4.04 M/mm3 (4.20-5.60)
[2019-02-15 07:32] LABS: ALANINE AMINOTRANSFERASE 43 U/L (21-72); ALBUMIN 3.8 gm/dL (3.5-5.0); ALKALINE PHOSPHATASE 67 U/L (50-136); ANION GAP 6 mmol/L (7-16); AST,SGOT 31 U/L (15-37); BILIRUBIN,TOTAL 1.1 mg/dL (0.0-1.0); BLOOD UREA NITROGEN 19 mg/dL (9-20); CALCIUM 9.1 mg/dL (8.4-10.2); CARBON DIOXIDE 27 mmol/L (22-30); CHLORIDE 104 mmol/L (98-107); CHOLESTEROL 120 mg/dL (120-200); CHOLESTEROL RISK RATIO 2.7; CREATININE, serum 0.97 (0.66-1.25); GLUCOSE 102 mg/dL (74-106); HDL CHOLESTEROL 43 mg/dL; LDL CHOLESTEROL 56 mg/dL; POTASSIUM 3.8 mmol/L (3.4-5.0); SODIUM 137 mmol/L (137-145); TOTAL PROTEIN 7.2 gm/dL (6.4-8.2); TRIGLYCERIDE 106 mg/dL
[2019-02-15 08:01] LABS: TROPONIN-I < 0.012 ng/mL (0.000-0.035)
--- NOTE | 2019-02-15 13:46 | NUR ---
HIGH LIFT OPERATOR student met with the patient and the patient's to discuss a discharge plan. The patient lives in [place] with his and extended family. The patient reports independence with ADLs and has a cane, a CPAP and receives supplies from the [facility]. The patient's PCP is Asad [facility]ccorm[facility] APR[facility] at [facility] and the patient receives medications via mail from the [facility] and [facility]. The patient does not have advanced directives in the EMR. The patient plans to return home with his providing transportation. There are no additional needs at this time.
--- NOTE | 2019-02-15 14:40 | NUR ---
DC home ambulatory accompanied by . Gait steady. Pain free. Verbalizes understanding of discharge instructions. Able to describe appropriate situations requiring immediate follow up.
== END 2019-02-15 14:40 | disposition home or self-care (01) ==
LOC: COL.ER 13:29 → IMCU 18:40
PROVIDERS: Emergency Medicine; Nurse Practitioner Family; ADMIT Hospitalist
DX: I25.10 Atherosclerotic heart disease of native coronary artery without angina pectoris (principal); I11.0 Hypertensive heart disease with heart failure; I50.22 Chronic systolic (congestive) heart failure; I27.20 Pulmonary hypertension, unspecified; E78.5 Hyperlipidemia, unspecified; J44.9 Chronic obstructive pulmonary disease, unspecified; G47.33 Obstructive sleep apnea (adult) (pediatric); F43.10 Post-traumatic stress disorder, unspecified; Z88.6 Allergy status to analgesic agent; E66.01 Morbid (severe) obesity due to excess calories; N40.0 Benign prostatic hyperplasia without lower urinary tract symptoms; Z79.01 Long term (current) use of anticoagulants; Z79.82 Long term (current) use of aspirin; Z79.899 Other long term (current) drug therapy; Z87.891 Personal history of nicotine dependence; Z86.79 Personal history of other diseases of the circulatory system
CPT/HCPCS: A9500; G0378; J1650; J2785; J7030; Q9967

== ENCOUNTER 2019-04-28 10:01 | Emergency (ER) | payer OTHER ==
[~2019-04-28] VITALS: Ht 170.2 cm; Wt 127.3 kg
[~2019-04-28 10:01] MED LIST changes: +ULTRAM 50MG TAB50 MG PO
[2019-04-28 10:06] VITALS: TEMP 100.8
[2019-04-28 10:21] LABS: BASO % 0.5 % (0.0-2.0); EOS # 0.1 (0.0-0.7); EOS % 1.1 % (0-4.0); GRAN # 5.8 (1.4-6.5); GRAN % 76.9 % (42.2-75.2); HEMOGLOBIN 14.5 g/dl (13.5-18.0); LYMPH # 0.6 (1.2-3.4); LYMPH % 8.5 % (20.0-51.0); MEAN CELL VOLUME 96 fl (80.0-100.0); MEAN CORPUSCULAR HEMOGLOBIN 32 pg (27.0-31.0); MEAN CORPUSCULAR HGB CONC 33 g/dl (33.0-37.0); MEAN PLATELET VOLUME 8.6 fl (7.4-10.4); MONO % 12.7 % (1.7-9.3); PLATELET COUNT 187 K/mm3 (130-400); RED BLOOD COUNT 4.57 M/mm3 (4.20-5.60)
[2019-04-28 10:24] LABS: PROTHROMBIN TIME 12.2 SECONDS (9.7-12.8)
[2019-04-28 10:27] LABS: PARTIAL THROMBOPLASTIN TIME 30.1 SECONDS (26.0-37.0)
[2019-04-28 10:29] LABS: ALANINE AMINOTRANSFERASE 29 U/L (21-72); ALBUMIN 4.3 gm/dL (3.5-5.0); ALKALINE PHOSPHATASE 73 U/L (50-136); ANION GAP 7 mmol/L (7-16); AST,SGOT 29 U/L (15-37); BILIRUBIN,TOTAL 0.7 mg/dL (0.0-1.0); BLOOD UREA NITROGEN 19 mg/dL (9-20); CALCIUM 9.3 mg/dL (8.4-10.2); CARBON DIOXIDE 31 mmol/L (22-30); CHLORIDE 103 mmol/L (98-107); CREATININE, serum 0.92 (0.66-1.25); GLUCOSE 92 mg/dL (74-106); POTASSIUM 4.3 mmol/L (3.4-5.0); SODIUM 141 mmol/L (137-145); TOTAL PROTEIN 7.8 gm/dL (6.4-8.2)
[2019-04-28 10:42] LABS: TROPONIN-I < 0.012 ng/mL (0.000-0.035)
[2019-04-28] MEDS ORDERED: PREDNISONE10 MG PO (13:43)
[2019-04-28] MEDS ORDERED: ZITHROMAX Z PA250 MG PO (13:43)
[2019-04-28 13:51] VITALS: BP 145/100; PULSE 85
== END 2019-04-28 13:51 | disposition home or self-care (01) ==
LOC: COL.ER 10:01
PROVIDERS: Family Medicine
DX: J44.1 Chronic obstructive pulmonary disease with (acute) exacerbation (principal); I10 Essential (primary) hypertension; Z79.02 Long term (current) use of antithrombotics/antiplatelets
CPT/HCPCS: J2930

== ENCOUNTER 2020-08-22 10:57 | Emergency (ER) | payer OTHER ==
[~2020-08-22] VITALS: Ht 167.6 cm; Wt 128.6 kg
[~2020-08-22 10:57] MED LIST changes: +PREDNISONE10 MG PO
[2020-08-22 11:02] VITALS: TEMP 97.8
[2020-08-22] MEDS ORDERED: NORCO 325 MG-7.1 TAB PO (11:39)
[2020-08-22 11:55] VITALS: BP 119/63; PULSE 65
== END 2020-08-22 11:55 | disposition home or self-care (01) ==
LOC: COL.ER 10:57
DX: M25.511 Pain in right shoulder (principal); I10 Essential (primary) hypertension; J44.9 Chronic obstructive pulmonary disease, unspecified; I25.10 Atherosclerotic heart disease of native coronary artery without angina pectoris; Z88.8 Allergy status to other drugs, medicaments and biological substances; Z87.891 Personal history of nicotine dependence; Z79.52 Long term (current) use of systemic steroids; Z79.899 Other long term (current) drug therapy; Z79.02 Long term (current) use of antithrombotics/antiplatelets; Z79.51 Long term (current) use of inhaled steroids

== ENCOUNTER 2020-11-25 12:14 | Emergency (ER) | payer OTHER ==
[~2020-11-25] VITALS: Ht 167.6 cm; Wt 117.0 kg
[2020-11-25 13:36] LABS: BASO % 0.7 % (0.0-2.0); EOS % 0.2 % (0-4.0); GRAN % 66.8 % (42.2-75.2); HEMATOCRIT 45.8 % (42.0-52.0); HEMOGLOBIN 15.3 g/dl (13.5-18.0); LYMPH # 0.6 (1.2-3.4); LYMPH % 14.5 % (20.0-51.0); MEAN CELL VOLUME 97 fl (80.0-100.0); MEAN CORPUSCULAR HEMOGLOBIN 32 pg (27.0-31.0); MEAN CORPUSCULAR HGB CONC 33 g/dl (33.0-37.0); MONO # 0.8 (0.1-0.6); MONO % 17.6 % (1.7-9.3); PLATELET COUNT 173 K/mm3 (130-400); RED BLOOD COUNT 4.72 M/mm3 (4.20-5.60); REDCELL DISTRIBUTION WIDTH-CV 14.5 % (11.5-14.5)
[2020-11-25 13:49] LABS: ALBUMIN 4.4 gm/dL (3.5-5.0); BILIRUBIN,TOTAL 0.9 mg/dL (0.0-1.0); C-REACTIVE PROTEIN 6.7 mg/dL (0.0-0.9); CALCIUM 9.2 mg/dL (8.4-10.2); CREATININE, serum 1.28 (0.66-1.25); POTASSIUM 3.5 mmol/L (3.4-5.0)
[2020-11-25 17:15] VITALS: BP 120/64; PULSE 74; TEMP 99.2
== END 2020-11-25 17:25 | disposition left against medical advice (07) ==
LOC: COL.ER 12:14
PROVIDERS: Nurse Practitioner
DX: U07.1 COVID-19 (principal); I25.10 Atherosclerotic heart disease of native coronary artery without angina pectoris; I10 Essential (primary) hypertension; J44.9 Chronic obstructive pulmonary disease, unspecified; E78.5 Hyperlipidemia, unspecified; Z79.899 Other long term (current) drug therapy; Z79.02 Long term (current) use of antithrombotics/antiplatelets
CPT/HCPCS: J2405; J7030; Q0244

== ENCOUNTER 2022-03-26 01:25 | Inpatient (IN) | payer OTHER, MEDICARE ==
[~2022-03-26] VITALS: Ht 167.6 cm; Wt 116.2 kg
[2022-03-26] VITALS (1052 sets, daily range): BP systolic 97–125; BP diastolic 58–89; PULSE 80–90; TEMP 98–98.5; O2SAT 78–100
[~2022-03-26 01:25] MED LIST changes: +CIPRO 500MG TA500 MG PO; +ZOFRAN ODT4 MG PO
[2022-03-26 01:52] LABS: BASO # 0.1 K/mm3 (0.0-0.2); BASO % 0.7 % (0.0-2.0); EOS # 0.2 K/mm3 (0.0-0.7); EOS % 3.1 % (0.0-4.0); GRAN # 2.7 K/mm3 (1.4-6.5); GRAN % 40.1 % (42.2-75.2); HEMATOCRIT 44.9 % (42.0-52.0); HEMOGLOBIN 15.4 g/dl (13.5-18.0); LYMPH # 3.1 K/mm3 (1.2-3.4); LYMPH % 45.4 % (20.0-51.0); MEAN CELL VOLUME 95 fl (80.0-100.0); MEAN CORPUSCULAR HEMOGLOBIN 32 pg (27-31); MEAN CORPUSCULAR HGB CONC 34 g/dl (33.0-37.0); MEAN PLATELET VOLUME 8.6 fl (7.4-10.4); MONO # 0.7 K/mm3 (0.1-0.6); MONO % 10.6 % (1.7-9.3); PLATELET COUNT 257 K/mm3 (130-400); RED BLOOD COUNT 4.75 M/mm3 (4.20-5.60); REDCELL DISTRIBUTION WIDTH-CV 13.2 % (11.5-14.5)
[2022-03-26 02:09] LABS: ALBUMIN 3.6 gm/dL (3.4-4.8); BILIRUBIN,TOTAL 0.5 mg/dL (0.2-1.2); C-REACTIVE PROTEIN 0.84 mg/dL (0.00-0.50); CALCIUM 9.9 mg/dL (8.4-10.2); CREATININE, serum 0.98 mg/dL (0.72-1.25); TOTAL PROTEIN 7.4 gm/dL (6.2-8.1)
[2022-03-26 02:10] LABS: POTASSIUM 3.4 mmol/L (3.5-4.5)
[2022-03-26 03:36] LABS: HEMATOCRIT 34.5 % (42.0-52.0)
[2022-03-26 03:37] LABS: HEMOGLOBIN 11.8 g/dl (13.5-18.0)
[2022-03-26 04:30] LABS: MAGNESIUM 1.9 mg/dL (1.6-2.6); PHOSPHOROUS 4.4 mg/dL (2.3-4.7)
[2022-03-26] MEDS ORDERED: BUSPAR 30MG30 MG/TAB PO ×2 (04:50→05:44)
[2022-03-26] MEDS ORDERED: TOPROL XL 25MG25 MG PO (05:44)
[2022-03-26] MEDS ORDERED: COZAAR 25MG25 MG/TAB PO (05:44)
[2022-03-26] MEDS ORDERED: BUSPAR10 MG PO (05:44)
[2022-03-26] MEDS ORDERED: HYGROTON 2525 MG/TAB PO (05:44)
[2022-03-26] MEDS ORDERED: PLAVIX 75MG TAB75 MG PO (05:44)
[2022-03-26] MEDS ORDERED: PROSCAR 5MG5 MG PO (05:45)
[2022-03-26] MEDS ORDERED: IMDUR 30MG30 MG/TAB PO (05:45)
[2022-03-26] MEDS ORDERED: LIPITOR 40MG TA40 MG PO (05:45)
[2022-03-26] MEDS ORDERED: BRINTELLIX20 PO (05:45)
[2022-03-26] MEDS ORDERED: ANORO IH (05:46)
[2022-03-26] MEDS ORDERED: THE MEDICINE SH1 POW (05:47)
[2022-03-26] MEDS ORDERED: ASMANEX HF200 MCG/Ac IH (05:47)
[2022-03-26 05:48] LABS: HEMATOCRIT 38.9 % (42.0-52.0); HEMOGLOBIN 12.3 g/dl (13.5-18.0)
[2022-03-26] MEDS ORDERED: ONE-A-DAY ESSE1 EACH PO (05:48)
[2022-03-26] MEDS ORDERED: ZYRTEC 10MG10 MG PO (05:48)
[2022-03-26] MEDS ORDERED: MASON NATURAL2000 IU PO (05:48)
--- NOTE | 2022-03-26 09:47 | NUR ---
Initial visit; Patient thanked Gunstock Repairer for looking in on him and offering spiritual care. He declined prayer at this time but was receptive to having Gunstock Repairer keep him in her prayers. Gunstock Repairer wished him a good recovery.
--- NOTE | 2022-03-26 10:53 | NUR ---
SAMAN met with patient to complete intake. Patients Katiuska ([phone]) is present at bedside. Patient is scheduled to go for a scope later on this afternoon. Patient lives at home indpendently with his Katiuska in [place]. He is normally independent with his ADL's and IADL's with the exception of driving. He states he is able to drive, but his grandson takes him most places. Patient does not utilizes any DME to assist with mobility and does not have home oxygen. He does have a CPAP he uses at night [facility]. [facility] [place] [facility]. He states he was recently assinged with a new physician and is unsure of their name. He utilizes [facility] for long[facility] and [facility] for short term medications. Patient denies having a DPOA-HC established and verbalizes that he does not wish to create one at this time.
[2022-03-26 18:06] LABS: HEMOGLOBIN 11.4 g/dl (13.5-18.0)
[2022-03-26 18:08] LABS: HEMATOCRIT 33.3 % (42.0-52.0)
--- NOTE | 2022-03-26 19:30 | NUR ---
Received report from DELBERT Prasad. Patient resting quietly in bed watching TV. Denies any pain or discomfort or further occurance of bloody stools since colonoscopy. He has been up independently in the room, tolerating well. Vitals within normal limits.
[2022-03-27] VITALS (348 sets, daily range): BP systolic 121–127; BP diastolic 74–75; PULSE 71; TEMP 98–98.2; O2SAT 92–100
[2022-03-27 06:06] LABS: BASO % 0.6 % (0.0-2.0); EOS # 0.1 K/mm3 (0.0-0.7); EOS % 1.8 % (0.0-4.0); GRAN # 2.7 K/mm3 (1.4-6.5); GRAN % 56.1 % (42.2-75.2); HEMOGLOBIN 10.8 g/dl (13.5-18.0); LYMPH # 1.4 K/mm3 (1.2-3.4); LYMPH % 29.2 % (20.0-51.0); MEAN CELL VOLUME 97 fl (80.0-100.0); MEAN CORPUSCULAR HEMOGLOBIN 32 pg (27-31); MEAN CORPUSCULAR HGB CONC 33 g/dl (33.0-37.0); MEAN PLATELET VOLUME 8.9 fl (7.4-10.4); MONO # 0.6 K/mm3 (0.1-0.6); MONO % 12.3 % (1.7-9.3); PLATELET COUNT 196 K/mm3 (130-400); RED BLOOD COUNT 3.33 M/mm3 (4.20-5.60); REDCELL DISTRIBUTION WIDTH-CV 13.6 % (11.5-14.5)
[2022-03-27 06:19] LABS: CALCIUM 8.5 mg/dL (8.4-10.2); CREATININE, serum 0.87 mg/dL (0.72-1.25); MAGNESIUM 1.8 mg/dL (1.6-2.6); POTASSIUM 3.9 mmol/L (3.5-4.5)
[2022-03-27 06:37] LABS: HEMATOCRIT 32.4 % (42.0-52.0)
--- NOTE | 2022-03-27 10:03 | NUR ---
PT IS DISHCARGED AT 0954- PT VERBALIZES UNDERSTANDING OF DISCHARGE INSTRUCTIONS AND WILL CALL IF ANY QUESTIONS OR CONCERNS ARISE.
[2022-04-09] MEDS ORDERED: PERCOCET 325 MG1 TA2 PO (14:21)
== END 2022-03-27 09:54 | disposition home or self-care (01) | DRG 378 ==
LOC: COL.ER 01:25 → ICU 03:52
PROVIDERS: Emergency Medicine; Internal Medicine; Internal Medicine Gastroenterology; Nurse Practitioner Family; ADMIT Student in an Organized Health Care Education/Training Program
PROC: 0DBL8ZX Excision of Transverse Colon, Via Natural or Artificial Opening Endoscopic, Diagnostic (ICD-10-PCS; 2022-03-26)
PROC: 0W3P8ZZ Control Bleeding in Gastrointestinal Tract, Via Natural or Artificial Opening Endoscopic (ICD-10-PCS; 2022-03-26)
PROC: 0DBN8ZX Excision of Sigmoid Colon, Via Natural or Artificial Opening Endoscopic, Diagnostic (ICD-10-PCS; 2022-03-26)
PROC: 0DBN8ZX Excision of Sigmoid Colon, Via Natural or Artificial Opening Endoscopic, Diagnostic (ICD-10-PCS; principal; 2022-03-26 15:00)
DX: K57.31 Diverticulosis of large intestine without perforation or abscess with bleeding (principal); D62 Acute posthemorrhagic anemia; I50.22 Chronic systolic (congestive) heart failure; K63.3 Ulcer of intestine; E87.20 Acidosis, unspecified; Z68.41 Body mass index [BMI] 40.0-44.9, adult; E78.5 Hyperlipidemia, unspecified; I25.10 Atherosclerotic heart disease of native coronary artery without angina pectoris; F43.10 Post-traumatic stress disorder, unspecified; N40.0 Benign prostatic hyperplasia without lower urinary tract symptoms; E66.01 Morbid (severe) obesity due to excess calories; G47.33 Obstructive sleep apnea (adult) (pediatric); J44.9 Chronic obstructive pulmonary disease, unspecified; I27.20 Pulmonary hypertension, unspecified; I95.9 Hypotension, unspecified; I11.0 Hypertensive heart disease with heart failure; F32.A Depression, unspecified; F41.9 Anxiety disorder, unspecified; N20.0 Calculus of kidney; D12.3 Benign neoplasm of transverse colon; E87.6 Hypokalemia; R73.9 Hyperglycemia, unspecified; D12.5 Benign neoplasm of sigmoid colon; K64.0 First degree hemorrhoids; Z98.0 Intestinal bypass and anastomosis status; I25.2 Old myocardial infarction; Z90.89 Acquired absence of other organs; Z88.6 Allergy status to analgesic agent; Z79.01 Long term (current) use of anticoagulants; Z87.891 Personal history of nicotine dependence; Z23 Encounter for immunization
CPT/HCPCS: C9113; J0744; J2405; J2543; J2704; J3480; J7030; Q9967

== ENCOUNTER 2022-05-03 09:34 | Emergency (ER) | payer OTHER ==
[~2022-05-03] VITALS: Ht 170.2 cm; Wt 109.1 kg
[~2022-05-03 09:34] MED LIST changes: +ASMANEX HF200 MCG/Ac IH; +BUSPAR 30MG30 MG/TAB PO; +BUSPAR10 MG PO; +COZAAR 25MG25 MG/TAB PO; +MASON NATURAL2000 IU PO; +ONE-A-DAY ESSE1 EACH PO; +PERCOCET 325 MG1 TA2 PO; +THE MEDICINE SH1 POW; +TOPROL XL 25MG25 MG PO; +ZYRTEC 10MG10 MG PO
[2022-05-03 10:05] VITALS: TEMP 99.9
[2022-05-03 12:19] LABS: BASO % 0.5 % (0.0-2.0); EOS # 0.2 K/mm3 (0.0-0.7); EOS % 2.3 % (0.0-4.0); GRAN # 4.7 K/mm3 (1.4-6.5); GRAN % 72.3 % (42.2-75.2); HEMATOCRIT 41.2 % (42.0-52.0); LYMPH # 0.6 K/mm3 (1.2-3.4); LYMPH % 9.7 % (20.0-51.0); MEAN CELL VOLUME 97 fl (80.0-100.0); MEAN CORPUSCULAR HEMOGLOBIN 33 pg (27-31); MEAN CORPUSCULAR HGB CONC 34 g/dl (33.0-37.0); MONO % 14.7 % (1.7-9.3); PLATELET COUNT 199 K/mm3 (130-400); RED BLOOD COUNT 4.24 M/mm3 (4.20-5.60); REDCELL DISTRIBUTION WIDTH-CV 13.7 % (11.5-14.5)
[2022-05-03 12:37] LABS: TROPONIN-I 0.031 ng/mL (0.00-0.033)
[2022-05-03 12:45] LABS: ALBUMIN 3.6 gm/dL (3.4-4.8); BILIRUBIN,TOTAL 0.7 mg/dL (0.2-1.2); CALCIUM 9.6 mg/dL (8.4-10.2); POTASSIUM 3.5 mmol/L (3.5-4.5); TOTAL PROTEIN 7.6 gm/dL (6.2-8.1)
[2022-05-03] MEDS ORDERED: DOXYCYCLINE 10100 MG PO (13:07)
[2022-05-03] MEDS ORDERED: PREDNISONE20 MG PO (13:07)
[2022-05-03 13:32] VITALS: BP 119/80; PULSE 94
== END 2022-05-03 13:32 | disposition home or self-care (01) ==
LOC: COL.ER 09:34
PROVIDERS: Physician Assistant
DX: U07.1 COVID-19 (principal); J44.9 Chronic obstructive pulmonary disease, unspecified; I27.20 Pulmonary hypertension, unspecified; Z73.0 Burn-out

== ENCOUNTER 2023-02-02 09:55 | Emergency (ER) | payer OTHER ==
[~2023-02-02] VITALS: Ht 167.6 cm; Wt 122.7 kg
[~2023-02-02 09:55] MED LIST changes: +DOXYCYCLINE 10100 MG PO; +PREDNISONE20 MG PO
[2023-02-02 10:00] VITALS: TEMP 98
[2023-02-02 10:36] LABS: BASO % 0.5 % (0.0-2.0); EOS # 0.2 K/mm3 (0.0-0.7); EOS % 3.1 % (0.0-4.0); GRAN # 4.1 K/mm3 (1.4-6.5); GRAN % 69.8 % (42.2-75.2); HEMATOCRIT 46.4 % (42.0-52.0); HEMOGLOBIN 15.3 g/dl (13.5-18.0); LYMPH # 0.9 K/mm3 (1.2-3.4); LYMPH % 14.4 % (20.0-51.0); MEAN CELL VOLUME 99 fl (80.0-100.0); MEAN CORPUSCULAR HEMOGLOBIN 33 pg (27-31); MEAN CORPUSCULAR HGB CONC 33 g/dl (33.0-37.0); MEAN PLATELET VOLUME 8.5 fl (7.4-10.4); MONO # 0.7 K/mm3 (0.1-0.6); PLATELET COUNT 202 K/mm3 (130-400); RED BLOOD COUNT 4.68 M/mm3 (4.20-5.60); REDCELL DISTRIBUTION WIDTH-CV 13.2 % (11.5-14.5)
[2023-02-02 10:57] LABS: ALBUMIN 3.5 gm/dL (3.4-4.8); CALCIUM 9.2 mg/dL (8.4-10.2); CREATININE, serum 0.97 mg/dL (0.72-1.25); POTASSIUM 4.1 mmol/L (3.5-4.5); TOTAL PROTEIN 7.2 gm/dL (6.2-8.1)
[2023-02-02 11:03] LABS: TROPONIN-I 0.026 ng/mL (0.00-0.033)
[2023-02-02] MEDS ORDERED: IPRATROPIUM BROM3 M1 IH (11:52)
[2023-02-02] MEDS ORDERED: NEB MC (11:52)
[2023-02-02 12:06] VITALS: BP 125/83; PULSE 63
== END 2023-02-02 12:15 | disposition home or self-care (01) ==
LOC: COL.ER 09:55
PROVIDERS: Physician Assistant
DX: R06.02 Shortness of breath (principal); R05.3 Chronic cough; Z87.09 Personal history of other diseases of the respiratory system
CPT/HCPCS: J1100

== ENCOUNTER 2023-03-03 23:55 | Emergency (ER) | payer OTHER ==
[~2023-03-03] VITALS: Ht 167.6 cm; Wt 125.0 kg
[~2023-03-03 23:55] MED LIST changes: +IPRATROPIUM BROM3 M1 IH; +NEB MC
[2023-03-04] VITALS: TEMP 97.7
[2023-03-04 00:35] LABS: BASO % 0.8 % (0.0-2.0); EOS # 0.2 K/mm3 (0.0-0.7); EOS % 3.8 % (0.0-4.0); GRAN % 42.3 % (42.2-75.2); HEMATOCRIT 46.2 % (42.0-52.0); LYMPH # 1.9 K/mm3 (1.2-3.4); LYMPH % 39.5 % (20.0-51.0); MEAN CELL VOLUME 96 fl (80.0-100.0); MEAN CORPUSCULAR HEMOGLOBIN 33 pg (27-31); MEAN CORPUSCULAR HGB CONC 35 g/dl (33.0-37.0); MEAN PLATELET VOLUME 8.8 fl (7.4-10.4); MONO # 0.6 K/mm3 (0.1-0.6); MONO % 13.4 % (1.7-9.3); PLATELET COUNT 213 K/mm3 (130-400); RED BLOOD COUNT 4.82 M/mm3 (4.20-5.60); REDCELL DISTRIBUTION WIDTH-CV 13.2 % (11.5-14.5)
[2023-03-04 00:39] LABS: ERYTHROCYTE SEDIMENTATION RATE 16 mm/hr (0-30)
[2023-03-04 00:41] LABS: ALBUMIN 3.8 gm/dL (3.4-4.8); CALCIUM 9.3 mg/dL (8.4-10.2); CREATININE, serum 1.01 mg/dL (0.72-1.25); POTASSIUM 3.8 mmol/L (3.5-4.5); TOTAL PROTEIN 7.4 gm/dL (6.2-8.1)
[2023-03-04 00:49] LABS: BILIRUBIN,TOTAL 0.5 mg/dL (0.2-1.2)
[2023-03-04 01:43] VITALS: BP 135/92; PULSE 59
[2023-03-04] MEDS ORDERED: PHENERGAN 25 TA25 MG PO (01:45)
== END 2023-03-04 02:04 | disposition home or self-care (01) ==
LOC: COL.ER 23:55
PROVIDERS: Emergency Medicine
DX: R51.9 Headache, unspecified (principal); R11.0 Nausea
CPT/HCPCS: J1100; J7040

== ENCOUNTER 2023-11-08 10:15 | Emergency (ER) | payer OTHER ==
[~2023-11-08] VITALS: Ht 170.2 cm; Wt 120.5 kg
[~2023-11-08 10:15] MED LIST changes: +PHENERGAN 25 TA25 MG PO
[2023-11-08 10:24] VITALS: TEMP 98.4
[2023-11-08] MEDS ORDERED: Albuterol/Ipratropium 3 MG-0.5 MG/3 ML Neb Soln IH ONE (10:45)
[2023-11-08] MEDS ORDERED: dexAMETHasone 10 MG/ML VIAL IV ONE (10:45)
[2023-11-08 11:16] LABS: BASO % 0.7 % (0.0-2.0); EOS # 0.1 K/mm3 (0.0-0.7); EOS % 1.8 % (0.0-4.0); GRAN # 3.9 K/mm3 (1.4-6.5); GRAN % 64.4 % (42.2-75.2); HEMATOCRIT 47.8 % (42.0-52.0); HEMOGLOBIN 16.7 g/dl (13.5-18.0); LYMPH # 1.2 K/mm3 (1.2-3.4); LYMPH % 20.2 % (20.0-51.0); MEAN CELL VOLUME 93 fl (80.0-100.0); MEAN CORPUSCULAR HEMOGLOBIN 33 pg (27-31); MEAN CORPUSCULAR HGB CONC 35 g/dl (33.0-37.0); MEAN PLATELET VOLUME 8.7 fl (7.4-10.4); MONO # 0.8 K/mm3 (0.1-0.6); MONO % 12.7 % (1.7-9.3); PLATELET COUNT 205 K/mm3 (130-400); RED BLOOD COUNT 5.12 M/mm3 (4.20-5.60); REDCELL DISTRIBUTION WIDTH-CV 12.9 % (11.5-14.5)
[2023-11-08 12:01] LABS: ALBUMIN 3.8 g/dL (3.4-4.8); BILIRUBIN,TOTAL 1.2 mg/dL (0.2-1.2); CALCIUM 9.8 mg/dL (8.4-10.2); CREATININE, serum 1.08 mg/dL (0.72-1.25); POTASSIUM 3.5 mEq/L (3.5-4.5); TOTAL PROTEIN 7.5 g/dl (6.2-8.1)
[2023-11-08 12:11] LABS: TROPONIN-I 0.016 ng/mL (0.00-0.033)
[2023-11-08 12:58] VITALS: BP 119/83; PULSE 93
== END 2023-11-08 13:00 | disposition home or self-care (01) ==
LOC: COL.ER 10:15
PROVIDERS: Physician Assistant
DX: J44.1 Chronic obstructive pulmonary disease with (acute) exacerbation (principal)
CPT/HCPCS: J1100